=== PATIENT | male | born 1965 | race African-American/Black ===

== ENCOUNTER 2020-09-13 10:55 | Outpatient (REF) | payer OTHER, SELFPAY | END 2020-09-13 10:56 | disposition home or self-care (01) | LOC: HO.LAB 10:55 | PROVIDERS: Visit Provider Internal Medicine | DX: Z20.828 Contact with and (suspected) exposure to other viral communicable diseases (principal) | CPT/HCPCS: C9803; U0003 ==

== ENCOUNTER 2021-09-26 03:45 | Emergency (ER) | payer OTHER, SELFPAY ==
--- NOTE | 2021-09-26 | ECG_ITS ---
Test Reason : elevated heartrate Blood Pressure : / mmHG Vent. Rate : 080 BPM Atrial Rate : 080 BPM P-R Int : 150 ms QRS Dur : 076 ms QT Int : 366 ms P-R-T Axes : 078 028 047 degrees QTc Int : 422 ms Normal sinus rhythm Cannot rule out Inferior infarct , age undetermined Abnormal ECG No previous ECGs available Referred By: Mi Burkett Electronically Signed By:OZ MEJIA MD
--- NOTE | ~2021-09-26 | XR_ITS ---
EXAMINATION: XR CHEST CLINICAL INFORMATION: Cough COMPARISON: Chest x-ray 09/20/2019 TECHNIQUE: 2 views of the chest were obtained. FINDINGS: Cardiac silhouette is normal in size. The lungs are well aerated. There is no lobar consolidation. No pleural effusion or pneumothorax. Mild diffuse degenerative changes of the spine. XR/XR chest 2V IMPRESSION: No acute pulmonary pathology.
[2021-09-26 04:00] VITALS: BMI 31.4
[2021-09-26 05:45] LABS: COVID-19 Test Negative (Negative)
[2021-09-26 05:58] VITALS: BP 118/77; PULSE 64; RESP 16; TEMP 36.7; O2SAT 97
[2021-09-26 06:13] LABS: Alanine Aminotransferase 24 U/L (0-40); Albumin Level 4.5 g/dL (3.5-5.0); Alkaline Phosphatase 81 U/L (39-117); Anion Gap 11 (12-20); Aspartate Amino Transferase 22 U/L (5-37); Bilirubin Total 0.3 mg/dL (0.0-1.0); Blood Urea Nitrogen 15 mg/dL (9-16); Calcium 9.6 mg/dL (8.4-10.2); Carbon Dioxide 25 mmol/L (22-29); Chloride 108 mmol/L (96-108); Creatinine Clr Calc Pharmacy 83.6; Estimated Glomerular Filt Rate > 60; Glucose Random 103 mg/dL (60-115); Sodium 140 mmol/L (135-145); Total Protein 7.1 g/dL (6.5-8.0)
[2021-09-26 06:14] LABS: Troponin-I High Sensitivity 6.4 ng/L (<3.5-35.0)
[2021-09-26 06:29] LABS: Basophils Percent Auto 0.9 % (0-2); Eosinophils Absolute Auto 0.1 X10*3/uL (0.0-0.4); Eosinophils Percent Auto 1.1 % (0-4); Hematocrit 38.9 % (42.0-52.0); Hemoglobin 13.6 g/dl (14.0-18.0); Imm Gran Abs Auto 0.01 X10*3/uL (0.00-0.03); Imm Gran Pct Auto 0.2 % (0.0-0.4); Lymphocytes Absolute Auto 1.5 X10*3/uL (1.2-4.9); Lymphocytes Percent Auto 31.1 % (20-40); MANUAL DIFF FLAG NO; Mean Corpuscular Hemoglobin 27.2 pg (27.0-33.0); Mean Corpuscular Volume 77.8 fL (80.0-98.0); Mean Platelet Volume 9.4 fL (9.4-12.4); Monocytes Absolute Auto 0.4 X10*3/uL (0.1-1.2); Neutrophils Absolute Auto 2.7 x10*3/uL (2.0-8.3); Neutrophils Percent Auto 57.7 % (45-73); Platelet Count 266 X10*3/uL (160-400); Red Cell Distribution Width 12.8 % (11.0-16.0); White Blood Count 4.7 X10*3/uL (4.8-10.8)
--- NOTE | 2021-09-26 07:07 | ED_ITS ---
HPI - Arrhythmia/Palpitations General Chief Complaint: Arrhythmia/Palpitations Time Seen by Provider: 09/26/21 07:07 History of Present Illness HPI narrative: Downtime form was filled out. Related Data Allergies Allergy/AdvReac Type Severity Reaction Status Date / Time No Known Allergies Allergy Unverified 06/29/20 19:40 [No Known Allergies*] [facility] Social History Social History Alcohol intake: never Patient Tobacco Use Status: Never used Tobacco Use of substances other than those prescribed or required for medical reasons: No Advance Directives: No Advance Directives Information Provided: No Physical Exam 2 Vital Signs: Vital Signs: Last Vital Signs Temp 98.1 F 09/26/21 05:58 Pulse 64 09/26/21 05:58 Resp 16 09/26/21 05:58 BP 118/77 09/26/21 05:58 Pulse Ox 97 09/26/21 05:58 BMI result Body Mass Index 31.4 MDM - Arrhythmia/Palpitations Lab Data Result diagrams: 09/26/21 05:00 09/26/21 05:00 Labs: Lab Results 09/26/21 09/26/21 09/26/21 Range/Units 05:00 05:00 05:00 WBC 4.7 L (4.8-10.8) X10*3/uL RBC 5.00 (4.60-5.80) X10*6/uL Hgb 13.6 L (14.0-18.0) g/dl Hct 38.9 L (42.0-52.0) % MCV 77.8 L (80.0-98.0) fL MCH 27.2 (27.0-33.0) pg MCHC 35.0 (31.0-36.0) g/dl RDW 12.8 (11.0-16.0) % Plt Count 266 (160-400) X10*3/uL MPV 9.4 (9.4-12.4) fL Immature Gran % (Auto) 0.2 (0.0-0.4) % Neut % (Auto) 57.7 (45-73) % Lymph % (Auto) 31.1 (20-40) % [place] % (Auto) 9.0 (2-11) % Eos % (Auto) 1.1 (0-4) % Baso % (Auto) 0.9 (0-2) % Lymph # (Auto) 1.5 (1.2-4.9) X10*3/uL [place] # (Auto) 0.4 (0.1-1.2) X10*3/uL Eos # (Auto) 0.1 (0.0-0.4) X10*3/uL Baso # (Auto) 0.0 (0.0-0.2) X10*3/uL Abs Immat Gran (auto) 0.01 (0.00-0.03) X10*3/uL Absolute Neuts (auto) 2.7 (2.0-8.3) x10*3/uL Absolute Nucleated RBC 0.000 (0.0-0.012) X10*3/uL Nucleated RBC % (auto) 0.0 (0.0-0.2) /100WBC Sodium 140 (135-145) mmol/L Potassium 4.0 (3.3-5.1) mmol/L Chloride 108 (96-108) mmol/L Carbon Dioxide 25 (22-29) mmol/L Anion Gap 11 L (12-20) BUN 15 (9-16) mg/dL Creatinine 1.20 (0.5-1.4) mg/dL Estim Creat Clear Calc 83.6 Estimated GFR > 60 Random Glucose 103 (60-115) mg/dL Calcium 9.6 (8.4-10.2) mg/dL Total Bilirubin 0.3 (0.0-1.0) mg/dL AST 22 (5-37) U/L ALT 24 (0-40) U/L Alkaline Phosphatase 81 (39-117) U/L Troponin I High Sens 6.4 (<3.5-35.0) ng/L Total Protein 7.1 (6.5-8.0) g/dL Albumin 4.5 (3.5-5.0) g/dL COVID-19 ([facility]) (Negative) COVID-19 Clin Com 09/26/21 Range/Units Unknown WBC (4.8-10.8) X10*3/uL RBC (4.60-5.80) X10*6/uL Hgb (14.0-18.0) g/dl Hct (42.0-52.0) % MCV (80.0-98.0) fL MCH (27.0-33.0) pg MCHC (31.0-36.0) g/dl RDW (11.0-16.0) % Plt Count (160-400) X10*3/uL MPV (9.4-12.4) fL Immature Gran % (Auto) (0.0-0.4) % Neut % (Auto) (45-73) % Lymph % (Auto) (20-40) % [place] % (Auto) (2-11) % Eos % (Auto) (0-4) % Baso % (Auto) (0-2) % Lymph # (Auto) (1.2-4.9) X10*3/uL [place] # (Auto) (0.1-1.2) X10*3/uL Eos # (Auto) (0.0-0.4) X10*3/uL Baso # (Auto) (0.0-0.2) X10*3/uL Abs Immat Gran (auto) (0.00-0.03) X10*3/uL Absolute Neuts (auto) (2.0-8.3) x10*3/uL Absolute Nucleated RBC (0.0-0.012) X10*3/uL Nucleated RBC % (auto) (0.0-0.2) /100WBC Sodium (135-145) mmol/L Potassium (3.3-5.1) mmol/L Chloride (96-108) mmol/L Carbon Dioxide (22-29) mmol/L Anion Gap (12-20) BUN (9-16) mg/dL Creatinine (0.5-1.4) mg/dL Estim Creat Clear Calc Estimated GFR Random Glucose (60-115) mg/dL Calcium (8.4-10.2) mg/dL Total Bilirubin (0.0-1.0) mg/dL AST (5-37) U/L ALT (0-40) U/L Alkaline Phosphatase (39-117) U/L Troponin I High Sens (<3.5-35.0) ng/L Total Protein (6.5-8.0) g/dL Albumin (3.5-5.0) g/dL COVID-19 ([facility]) Negative (Negative) COVID-19 Clin Com See Note
[2021-09-26 08:06] VITALS: BP 146/92; PULSE 69; RESP 14; TEMP 37.2; O2SAT 98
--- NOTE | 2021-09-26 08:46 | PC.NURSE ---
nad, skin wpd, no complaints, sr on monitor
== END 2021-09-26 07:15 | disposition home or self-care (01) ==
PROVIDERS: Emergency Provider Student in an Organized Health Care Education/Training Program
DX: R00.2 Palpitations (principal); Z20.822 Contact with and (suspected) exposure to COVID-19
CPT/HCPCS: 36415; 71046; 80053; 84484; 85025; 87635; 93005; 99284; 99285

== ENCOUNTER 2022-10-17 09:08 | Emergency (ER) | payer OTHER, SELFPAY ==
--- NOTE | ~2022-10-17 | XR_ITS ---
EXAMINATION: XR CHEST CLINICAL INFORMATION: Chest pain COMPARISON: 09/26/2021 TECHNIQUE: 2 views of the chest were obtained. FINDINGS: No significant abnormality is noted involving the heart, lungs, mediastinum, bony thorax or soft tissues. XR/XR chest 2V IMPRESSION: Unremarkable examination.
[2022-10-17 09:11] VITALS: BP 185/90; PULSE 82; RESP 18; TEMP 37.1; O2SAT 97; BMI 26.9
--- NOTE | 2022-10-17 09:16 | ECG_ITS ---
Test Reason : chest pain Blood Pressure : / mmHG Vent. Rate : 073 BPM Atrial Rate : 073 BPM P-R Int : 140 ms QRS Dur : 080 ms QT Int : 354 ms P-R-T Axes : 077 020 051 degrees QTc Int : 389 ms Normal sinus rhythm Minimal voltage criteria for LVH, may be normal variant ( Sokolow-Ortega ) Borderline ECG When compared with ECG of 26-SEP-2021 04:20, No significant change was found Referred By: Generic ED Physician Electronically Signed By:CAT CONTRERAS
[2022-10-17 09:34] LABS: Basophils Percent Auto 0.8 % (0-2); Eosinophils Percent Auto 0.8 % (0-4); Hemoglobin 13.7 g/dl (14.0-18.0); Imm Gran Abs Auto 0.01 X10*3/uL (0.00-0.03); Imm Gran Pct Auto 0.3 % (0.0-0.4); Lymphocytes Absolute Auto 1.1 X10*3/uL (1.2-4.9); Lymphocytes Percent Auto 28.5 % (20-40); MANUAL DIFF FLAG NO; Mean Corpuscular HGB Conc 35.1 g/dl (31.0-36.0); Mean Corpuscular Hemoglobin 27.2 pg (27.0-33.0); Mean Corpuscular Volume 77.4 fL (80.0-98.0); Mean Platelet Volume 8.9 fL (9.4-12.4); Monocytes Absolute Auto 0.3 X10*3/uL (0.1-1.2); Monocytes Percent Auto 7.3 % (2-11); Neutrophils Absolute Auto 2.4 x10*3/uL (2.0-8.3); Neutrophils Percent Auto 62.3 % (45-73); Platelet Count 245 X10*3/uL (160-400); Red Blood Count 5.04 X10*6/uL (4.60-5.80); White Blood Count 3.9 X10*3/uL (4.8-10.8)
[2022-10-17 09:51] LABS: Anion Gap 11 (12-20); Blood Urea Nitrogen 10 mg/dL (9-16); Calcium 9.3 mg/dL (8.4-10.2); Carbon Dioxide 23 mmol/L (22-29); Chloride 110 mmol/L (96-108); Creatinine Clr Calc Pharmacy 75.4; Estimated Glomerular Filt Rate > 60; Glucose Random 112 mg/dL (60-115); Potassium 4.1 mmol/L (3.3-5.1); Sodium 140 mmol/L (135-145)
[2022-10-17 10:03] LABS: Troponin-I High Sensitivity 3.5 ng/L (<3.5-35.0)
--- NOTE | 2022-10-17 10:40 | ED_ITS ---
HPI - Chest Pain General Chief Complaint: Chest Pain Stated Complaint: CP Time Seen by Provider: 10/17/22 10:34 Source: patient Mode of arrival: ambulatory Limitations: no limitations History of Present Illness HPI narrative: 57 year old male with hypertension started on nifedepime which has has taken for the last few days. He states he felt his blood pressure elevated yesterday after taking the medication so he took half a dose today. Still having the same symptoms. Now has left sided chest pain with movement. He denies dyspnea fever cough. He has never had a heart attack no history of blood clots. MD complaint: chest pain and chest discomfort Related Data Allergies Allergy/AdvReac Type Severity Reaction Status Date / Time No Known Allergies Allergy Verified 10/17/22 09:16 [No Known Allergies*] Review of Systems Review of Systems: Review of systems: General: Patient denies any fever chills recent illness or falls Musculoskeletal: Denies back pain or body aches or other injuries HEENT: denies headache, runny nose, ear pain Respiratory: denies shortness of breath, cough Cardiovascular: left sided chest pain or palpitations : denies dysuria, frequency Abdomen: no nausea vomiting denies abdominal pain Extremities: no swelling, no pain Skin: no diaphoresis Yes all other systems are reviewed and are negative PMFSH Social History Social History Alcohol intake: unknown Patient Tobacco Use Status: Never used Tobacco Smoked in Last 30 Days: No Advance Directives: No Advance Directives Information Provided: Yes Physical Exam Vital Signs: Vital Signs: Last Vital Signs Temp 98.7 F 10/17/22 09:11 Pulse 82 10/17/22 09:11 Resp 18 10/17/22 09:11 BP 185/90 H 10/17/22 09:11 Pulse Ox 97 10/17/22 09:11 O2 Del Method 10/17/22 09:11 BMI result Body Mass Index 26.9 General: Well-appearing well-nourished in no signs of distress HEENT: Normocephalic atraumatic Neck: No signs of JVD, no masses no tenderness or lymphadenopathy Cardiovascular: Regular rate and rhythm Respiratory: Clear to auscultation bilaterally Abdomen: Soft nontender no masses Extremities: Normal pedal pulses no signs of edema Skin: Dry warm no rashes Back: No tenderness full ROM Medical Decision Making Medical Decision Making MDM Narrative: Well appearing male who states after he takes nifedipine which was newly presribed by his doctor his blood pressure elevated and he has pain. He denies fallls injuries or lifting to explain the pain. I feel this is medication related and could be musckuloskeletal as his troponin XR and labs are all unremarkable. XR and labs are all normall Patient looks well I will discharge home with PCP ladarius nicholson. Differential Diagnosis Differential Diagnoses: The differential diagnosis associated with the presentation includes ACS, PE, Medication reaction to nifedipine, rib fracture, constochondritis, muscle strain less likely infection no signs of PE not tachycardic no hypoxia, ACS workup will be done No history of trauma I will add on repeat troponin and XR to workup Admission/Observation Consideration of admission/observation: Escalation of care including admission/observation considered Lab Data MDM Lab Attestation statement: I reviewed the patient's lab results. Result Diagrams: 10/17/22 09:22 10/17/22 09:22 Labs: Lab Results 10/17/22 10/17/22 10/17/22 Range/Units 09:22 09:22 09:22 WBC 3.9 L (4.8-10.8) X10*3/uL RBC 5.04 (4.60-5.80) X10*6/uL Hgb 13.7 L (14.0-18.0) g/dl Hct 39.0 L (42.0-52.0) % MCV 77.4 L (80.0-98.0) fL MCH 27.2 (27.0-33.0) pg MCHC 35.1 (31.0-36.0) g/dl RDW 13.0 (11.0-16.0) % Plt Count 245 (160-400) X10*3/uL MPV 8.9 L (9.4-12.4) fL Immature Gran % (Auto) 0.3 (0.0-0.4) % Neut % (Auto) 62.3 (45-73) % Lymph % (Auto) 28.5 (20-40) % [place] % (Auto) 7.3 (2-11) % Eos % (Auto) 0.8 (0-4) % Baso % (Auto) 0.8 (0-2) % Lymph # (Auto) 1.1 L (1.2-4.9) X10*3/uL [place] # (Auto) 0.3 (0.1-1.2) X10*3/uL Eos # (Auto) 0.0 (0.0-0.4) X10*3/uL Baso # (Auto) 0.0 (0.0-0.2) X10*3/uL Abs Immat Gran (auto) 0.01 (0.00-0.03) X10*3/uL Absolute Neuts (auto) 2.4 (2.0-8.3) x10*3/uL Absolute Nucleated RBC 0.000 (0.0-0.012) X10*3/uL Nucleated RBC % (auto) 0.0 (0.0-0.2) /100WBC Sodium 140 (135-145) mmol/L Potassium 4.1 (3.3-5.1) mmol/L Chloride 110 H (96-108) mmol/L Carbon Dioxide 23 (22-29) mmol/L Anion Gap 11 L (12-20) BUN 10 (9-16) mg/dL Creatinine 1.15 (0.5-1.4) mg/dL Estim Creat Clear Calc 75.4 Estimated GFR > 60 Random Glucose 112 (60-115) mg/dL Calcium 9.3 (8.4-10.2) mg/dL Troponin I High Sens 3.5 (<3.5-35.0) ng/L 10/17/22 Range/Units 11:07 WBC (4.8-10.8) X10*3/uL RBC (4.60-5.80) X10*6/uL Hgb (14.0-18.0) g/dl Hct (42.0-52.0) % MCV (80.0-98.0) fL MCH (27.0-33.0) pg MCHC (31.0-36.0) g/dl RDW (11.0-16.0) % Plt Count (160-400) X10*3/uL MPV (9.4-12.4) fL Immature Gran % (Auto) (0.0-0.4) % Neut % (Auto) (45-73) % Lymph % (Auto) (20-40) % [place] % (Auto) (2-11) % Eos % (Auto) (0-4) % Baso % (Auto) (0-2) % Lymph # (Auto) (1.2-4.9) X10*3/uL [place] # (Auto) (0.1-1.2) X10*3/uL Eos # (Auto) (0.0-0.4) X10*3/uL Baso # (Auto) (0.0-0.2) X10*3/uL Abs Immat Gran (auto) (0.00-0.03) X10*3/uL Absolute Neuts (auto) (2.0-8.3) x10*3/uL Absolute Nucleated RBC (0.0-0.012) X10*3/uL Nucleated RBC % (auto) (0.0-0.2) /100WBC Sodium (135-145) mmol/L Potassium (3.3-5.1) mmol/L Chloride (96-108) mmol/L Carbon Dioxide (22-29) mmol/L Anion Gap (12-20) BUN (9-16) mg/dL Creatinine (0.5-1.4) mg/dL Estim Creat Clear Calc Estimated GFR Random Glucose (60-115) mg/dL Calcium (8.4-10.2) mg/dL Troponin I High Sens 3.5 (<3.5-35.0) ng/L Independent Interpretation I performed an independent interpretation of an: EKG and Plain X-Ray Interpretation: EKG Rate 73 nsr normal intervals no signs of ischemia similiar to previous XR is normal Radiology Impression Discussion of test interpretation with radiology: I have reviewed the radiologist's reading. Scores Heart Score History: -0- slightly suspicious ECG: -0- normal Age: -1- >45 - <65 Risk factory: -0- no risk factors known Troponin: -0- < or = normal limit Score: 1 Risk: 1.7% Additional Scores PERC Score: Score: negative Discharge Plan Discharge Clinical Impression: Chest pain, Adverse effect of nifedipine Patient Disposition: Home, Self-Care Instructions: Chest Pain (DC) Additional Instructions: XR labs are all normal I will send home with PCp ladarius dumont. Stand Alone Forms: Work/School Release
--- NOTE | 2022-10-17 10:41 | PC.NURSE ---
Patient presents to ED with reprot of chest pain since last night radiaiting to back worse with movement no inspiration palpation. LS clear no distress noted NSR on cardiac monito. Reports recnt dose change in BP med reports chest pain post admin. AOx 4 neuros intact no drift no facial droop no deviation of tongue. Denies ABD pain, IV access obtained .
[2022-10-17 11:36] LABS: Troponin-I High Sensitivity 3.5 ng/L (<3.5-35.0)
[2022-10-17] MEDS: 0.9 % Sodium Chloride 1,000 ML 999 ML IV (12:08)
[2022-10-17] MEDS: Ketorolac Tromethamine 15 MG/ML VIAL IVPUSH (12:08)
[2022-10-17] MEDS: Aspirin 81 MG TAB.CHEW 324 MG PO (12:08)
== END 2022-10-17 12:38 | disposition home or self-care (01) ==
PROVIDERS: Emergency Provider Student in an Organized Health Care Education/Training Program
DX: R07.89 Other chest pain (principal); Z79.899 Other long term (current) drug therapy
CPT/HCPCS: 36415; 71046; 80048; 84484; 85025; 93005; 96374; 99284; J1885

== ENCOUNTER 2023-05-02 08:52 | Outpatient (REF) | payer OTHER, SELFPAY ==
[2023-05-02 15:46] LABS: Alanine Aminotransferase 18 U/L (0-40); Albumin Level 4.1 g/dL (3.5-5.0); Alkaline Phosphatase 69 U/L (39-117); Anion Gap 10 (12-20); Aspartate Amino Transferase 23 U/L (5-37); Bilirubin Total 0.4 mg/dL (0.0-1.0); Blood Urea Nitrogen 12 mg/dL (9-16); Calcium 9.2 mg/dL (8.4-10.2); Carbon Dioxide 27 mmol/L (22-29); Chloride 106 mmol/L (96-108); Cholesterol 185 mg/dL; Estimated Glomerular Filt Rate > 60; Glucose Fasting 60 mg/dL (60-99); HDL Cholesterol 52 mg/dL; LDL Cholesterol Calculated 116 mg/dl; Potassium 4.4 mmol/L (3.3-5.1); Sodium 139 mmol/L (135-145); Total Protein 7.1 g/dL (6.5-8.0); Triglycerides 85 mg/dL
[2023-05-02 15:47] LABS: TSH reflex Free T4 1.97 uIU/mL (0.32-4.0)
== END 2023-05-02 08:53 | disposition home or self-care (01) ==
LOC: HO.CHCLDS 08:52
PROVIDERS: Visit Provider Internal Medicine
DX: I10 Essential (primary) hypertension (principal)
CPT/HCPCS: 36415; 80053; 80061; 84443

== ENCOUNTER 2024-06-10 12:57 | Outpatient (REF) | payer OTHER, SELFPAY ==
[2024-06-11 09:15] LABS: HBS Num1 0.31 mIU/mL (0-7.99); ~Hepatitis B Surface Antibody NONREACTIVE (Nonreactive)
[2024-06-11 09:22] LABS: Hepatitis A Antibody IgM 0.14 Index (0-0.79); ~Hepatitis A Antibody IgM Nonreactive (Nonreactive)
== END 2024-06-10 12:58 | disposition home or self-care (01) ==
LOC: HO.CHCLDS 12:57
PROVIDERS: Visit Provider Internal Medicine
DX: I10 Essential (primary) hypertension (principal); Z11.59 Encounter for screening for other viral diseases
CPT/HCPCS: 36415; 86706; 86709

== ENCOUNTER 2024-12-21 10:22 | Outpatient (REF) | payer OTHER, SELFPAY ==
--- OUTSIDE RECORDS SUMMARY | 2024-12-21 12:17 | XMS_ITS | Encounter Summary ---
Author Organization [employer] Address [address] [place] [address] [address], [place] [address] Care Team Providers Care Construction Trench Digger Name Role Phone Kaya Craig MD Primary Care Provider [phone] Encounter Details Date Type Department Care Team (Latest Contact Info) Description 09/29/2019 Abstract [facility] CONVERSIONS Dental, Provider, DDS Social History Tobacco Use Types Packs/Day Years Used Date Smoking Tobacco: Never Assessed Sex and Gender Information Value Date Recorded Sex Assigned at Male 08/12/2022 10:35 AM EDT Legal Sex Male 10:35 AM EDT Gender Identity Male 08/12/2022 10:35 AM EDT Sexual Orientation Straight 08/12/2022 10 :35 AM EDT documented as of this encounter Plan of Treatment Not on file documented as of this encounter Visit Diagnoses Not on filedocumented in this encounter Care Teams Construction Trench Digger Relationship Specialty Start Date End Date Kaya Craig MD [address] [facility] [place] [id number] PCP - General Internal Medicine 08/31/21 documented as of this encounter
--- OUTSIDE RECORDS SUMMARY | 2024-12-21 12:18 | XMS_ITS | Clinical Summary ---
Author Organization [employer] Address [address] [place] [address] [address] [place] [address] Care Team Providers Care Lead Network Engineer Name Role Phone Kaya Craig MD Primary Care Provider [phone] Allergies No known active allergies Medications chlorhexidine (Hibiclens) 4 % external liquidIndication s:Acute folliculitis Apply topically if needed each day for wound care. 118 mL 12/08/19 24 Active Aspirin Adult Low Strength 81 MG EC tabletIndication s:Primary hypertension TAKE ONE TABLET EVERY MORNING 30 tablet 11 09/15/20 24 Active amLODIPine (Norvasc) 5 MG tabletIndication s:Primary hypertension TAKE ONE TABLET EVERY MORNING 90 tablet 12/07/19 25 Active amLODIPine (Norvasc) 5 MG tabletIndication s:Primary hypertension TAKE ONE TABLET EVERY MORNING 90 tablet 08/25/20 24 025 Discontinued Active Problems Problem Noted Date Diagnosed Date Hypertensive disorder 10/17/2022 Inactive tuberculosis 09/20/2019 Pure hypercholesterolemia 01/01/2019 Encounters Date Type Department Care Team Description 12/21/2024 9:30 AM EDT Office Visit [facility] [address] [place] [address] Kaya Craig MD Primary hypertension (Primary Dx); Screen for STD (sexually transmitted disease); Encounter for immunization 12/21/2024 Travel 12/14/2024 Patient Outreach [facility] [address] [place] [address] Kaya Craig MD Pre-visit Planning ([facility] unable to reach [facility]) 12/06/2024 Refill [facility] [address] [place] [address] Kaya Craig MD Primary hypertension 10/08/2024 10:00 AM EST Nurse Only [facility] [address] [place] [address] Mary Mazariegos, RN Encounter for immunization 10/08/2024 Travel from Last 3 Months Immunizations Name Administration Dates Next Due Hep A, Adult 06/18/2024 Hep B, adult 10/08/2024,07/19/2024,06/18/2024 Pfizer Covid-19 Vaccine 12+ 02/23/2021, Pneumococcal Conjugate PCV 20 12/21/2024 Tdap 04/02/2022 Zoster, Recombinant 04/02/2022 Family History Medical History Relation Name Comments Dementia Father Pneumonia Father Bone cancer Mother Hypertension Mother No Known Problems Mother's Sister Relation Name Status Comments Father Mother Mother's Sister Social History Tobacco Use Types Packs/Day Years Used Date Smoking Tobacco: Never Passive Smoke Exposure: Never Smokeless Tobacco: Never Tobacco Cessation:Counseling Given: Not Answered Alcohol Use Standard Drinks/Week Comments Never 0 (1 standard drink = 0.6 oz pur e alcohol) Depression Answer Date Recorded Patient Health Questionnaire-9 Score 0 03/30/2024 Patient Health Questionnaire-9 Score 0 03/30/2024 Last PHQ-9: Questionnaire Data Not on file 0 03/30/2024 Housing Stability Answer Date Recorded What is your housing situation today? I have julia kinsey 12/21/[address] you li ve. Do you have problems with any of the following? None of the above 12/21/2024 Food Insecurity Answer Date Recorded Within the past 12 months, y ou worried that your food would run out before you got money to buy more: Never True 12/21/2024 Within the past 12 months,th e food you bought just didn't last and you didn't have enough money to get more: Never True 08/2025 Transportation Answer Date Recorded In the past 12 months, has l ack of transportation kept you from medical appts, meetings, work or from getting things needed for daily living? No 12/21/2024 Utilities Answer Date Recorded In the past 12 months, has t he electric, gas, oil or water company threatened to shut off services in your home? No 12/21/2024 Depression Answer Date Recorded Patient Health Questionnaire-2 Score 0 03/30/2024 Internet Access Answer Date Recorded Internet Access Q1 Yes 12/21/2024 Internet Access Q2 Not on file 12/21/2024 Sex and Gender Information Value Date Recorded Sex Assigned at Male 08/12/2022 10:35 AM EDT Legal Sex Male 10:35 AM EDT Gender Identity Male 08/12/2022 10:35 AM EDT Sexual Orientation Straight 08/12/2022 10 :35 AM EDT Last Filed Vital Signs Vital Sign Reading Time Taken Comments Blood Pressure 177/101 12/21/2024 9:24 AM EDT Pulse 81 12/21/2024 9:24 AM EDT Temperature 36.9 ??C (98.5 ??F) 12/21/2024 9:24 AM ED T Respiratory Rate 20 12/21/2024 9:24 AM EDT Oxygen Saturation 98% 12/21/2024 9:24 AM EDT Inhaled Oxygen Concentration - - Weight 92.1 kg (203 lb) 12/21/2024 9:24 AM EDT Height 177.8 cm (5' 10 ) 12/21/2024 9:24 AM EDT Body Mass Index 29.13 12/21/2024 9:24 AM EDT Plan of Treatment Health Maintenance Due Date Last Done Comments CT Colonography 1965 Colonoscopy 1965 FIT 1965 FOBT 1965 HIV Screening 1965 Sigmoidoscopy 1965 Zoster Vaccines (2 of 2) 05/28/2022 04/02/2022 COVID-19 Vaccine (3 - 2023-2 5 season) 2024 02/23/2021, 02/03/2021 Influenza Vaccine (#1) 2024 Depression Screening 03/30/2025 03/30/2024, 03/30/2024 Alcohol/Substance Use Screening 12/21/2025 12/21/2024 SDOH Screening 12/21/2025 12/21/2024 Tobacco Screening 12/21/2025 12/21/2024 Colorectal Cancer Screening 04/07/2027 FIT DNA/Cologuard 04/07/2027 04/07/2024 Lipid Panel 05/02/2028 05/02/2023, 09/04/2021 DTaP/Tdap/Td Vaccines (2 - T d or Tdap) 04/02/2032 04/02/2022 RSV Patients and Patients Aged 60 years or older (1 - 1-dose 75+ series) 2040 Hepatitis C Screening Completed 11/12/2021 Hepatitis A Vaccines Aged Out 06/18/2024 No long er eligible based on patient's age to complete this topic Hepatitis B Vaccines Completed 10/08/2024, 07/19/2024, 06/18/2024 Pneumococcal Vaccine: 50+ Years Completed 12/21/2024 HIB Vaccines Aged Out No longer eligi ble based on patient's age to complete this topic HPV Vaccines Aged Out No longer eligi ble based on patient's age to complete this topic IPV Vaccines Aged Out No longer eligi ble based on patient's age to complete this topic Meningococcal Vaccine Aged Out No shadi lennox eligible based on patient's age to complete this topic RSV under 20 months Aged Out No longe r eligible based on patient's age to complete this topic Rotavirus Vaccines Aged Out No longer eligible based on patient's age to complete this topic Procedures Procedure Name Priority Date/Time Associated Diagnosis Comments LAB COLOGUARD?? COLON CANCER SCREEN Routine 04/07/2024 7:40 AM EDT Screening for colon cancer LIPID PANEL, STANDARD Routine 05/02/2023 8:56 AM EDT Primary hypertension ZZZ HISTORICAL HEPATITIS C AB W/REFL TO HCV RNA, QN, PCR Routine 11/12/2021 8:35 AM EST from Last 3 Months or Most Recently Relevant to Health Maintenance Results * Cologuard?? colon cancer screening (04/07/2024 7:40 AM EDT) Cologuard Result Negative Negative 04/13/20 24 5:11 PM EDT [facility] (CLIA #:[id number]) Comment: NEGATIVE TEST RESULT. A negative Cologuard result indicates a low likelihood that a colorectal cancer (CRC) or advanced adenoma (adenomatous polyps with more advanced pre-malignant features) ??is present. The chance that a person with a negative Cologuard test has a colorectal cancer is less than 1 in 1500 (negative predictive value >99.9%) or has an ??advanced adenoma is less than ??5.3% (negative predictive value 94.7%). These data are based on a prospective cross-sectional study of 10,000 individuals at average risk for colorectal cancer who were screened with both Cologuard and colonoscopy. (Antonio Garcia et al, N Engl J Med 2014;370(14):1286- 1297) The normal value (reference range) for this assay is negative. COLOGUARD RE-SCREENING RECOMMENDATION: Periodic colorectal cancer screening is an important part of preventive healthcare for asymptomatic individuals at average risk for colorectal cancer. ??Following a negative Cologuard result, the [place] [employer] and U.S. Multi-Society Task Force screening guidelines recommend a Cologuard re-screening interval of 3 years. References: [place] [employer] Guideline for Colorectal Cancer Screening: https://www.cancer.org/cancer/eltpd-siwlsr-fkgqpm/repuwzaqs-yhqvuynwx-peybccj/ac s-rec ommendations.html.; Meño DK, Orlando DEL TORO, Dunia MartinK, Colorectal Cancer Screening: Recommendations for Physicians and Patients from the U.S. Multi-Society Task Force on Colorectal Cancer Screening , Am J Gastroenterology 2017; 112:2239-2131. TEST DESCRIPTION: Composite algorithmic analysis of stool DNA-biomarkers with hemoglobin immunoassay. ?? Quantitative values of individual biomarkers are not reportable and are not associated with individual biomarker result reference ranges. Cologuard is intended for colorectal cancer screening of adults of either sex, 45 years or older, who are at average-risk for colorectal cancer (CRC). Cologuard has been approved for use by the U.S. FDA. The performance of Cologuard was established in a cross sectional study of average-risk adults aged 50-84. Cologuard performance in patients ages 45 to 49 years was estimated by sub-group analysis of near-age groups. Colonoscopies performed for a positive result may find as the most clinically significant lesion: colorectal cancer [4.0%], advanced adenoma (including sessile serrated polyps greater than or equal to 1cm diameter) [20%] or non- advanced adenoma [31%]; or no colorectal neoplasia [45%]. These estimates are derived from a prospective cross-sectional screening study of 10,000 individuals at average risk for colorectal cancer who were screened with both Cologuard and colonoscopy. (Antonio Brown al, N Engl J Med 2014;370(14):0611-7339.) Cologuard may produce a false negative or false positive result (no colorectal cancer or precancerous polyp present at colonoscopy follow up). A negative Cologuard test result does not guarantee the absence of CRC or advanced adenoma (pre-cancer). The current Cologuard screening interval is every 3 years. ([place] [employer] and U.S. Multi-Society Task Force). Cologuard performance data in a 10,000 patient pivotal study using colonoscopy as the reference method can be accessed at the following location: www.[employer].M2TECH/results. Additional description of the Cologuard test process, warnings and precautions can be found at www.CodeBabyogSprucelingrd.com. Stool specimen (specimen) 04/07/2024 7:40 AM EDT 04/08/2024 10:51 AM EDT us Kaya Craig MD LAB MOLECULAR DIAGNOSTICS O RDERABLES Final Result [facility] [employer] (CLIA #:[id number]) [address] [place] [address], * Lipid Panel, Standard (05/02/2023 8:56 AM EDT) Triglycerides 85 mg/dL [facility] Comment:Desirable Triglyceri de: less than 150 mg/dLBorderline High Triglyceride 150-199 mg/dLHigh Triglyceride: 200-499 mg/dLVery High Triglyceride: greater than or equal to 5OO mg/dL Cholesterol 185 mg/dL [facility] Comment:Desirable Cholestero l: less than 200 mg/dLBorderline High Cholesterol: 200-239 mg/dLHigh Cholesterol: greater than 239 mg/dL LDL Cholesterol Calculated 116 mg/dl [facility] Comment:Desirable LDL: less than 100 mg/dLNear Optimal/Above Optimal LDL: 110- 129 mg/dLBorderline High LDL: 130-159 mg/dLHigh LDL: 160-189 mg/dLVery High LDL: greater than or equal to 190 mg/dL HDL Cholesterol 52 mg/dL [facility] Comment:Desirable HDL: great er than 40 mg/dL Note: This HDL assay may give artificially low results in patients with liver disease. Blood Venous blood specimen / Unknown 05/02/2023 8:56 AM EDT 05/02/2023 2:24 PM EDT us Kaya Craig MD LAB BLOOD ORDERABLES Final Result Performing Organization Address [facility]/ZIP Co de Phone Number [facility] [address] [place] [address] [phone] * HEPATITIS C AB W/REFL TO HCV RNA, QN, PCR (11/12/2021 8:35 AM EST) HEPATITIS C ANTIBODY NON-REACT [facility] NON-REACT [facility] INDEX 0.03 <1.00 [facility] Comment: ?? HCV antibody was non-reactive. There is no laboratory ?? evidence of HCV infection. ?? In most cases, no further action is required. However, if recent HCV exposure is suspected, a test for HCV RNA (test code 05438) is suggested. ?? For additional information please refer to http://education.[employer].M2TECH/faq/EMK00v0 (This link is being provided for informational/ educational purposes only.) ?? 11/12/2021 8:35 AM EST us Kaya Craig MD HISTORICAL/NON ORDERABLE LA BS Final Result Performing Organization Address City/[facility]/ZIP Co de Phone Number [facility] [address] [place] [address], from Last 3 Months or Most Recently Relevant to Health Maintenance Insurance # [address] [place] [address] [facility] [address] [place] [address] [address] [place] [address] [id number] [place] [id number] Care Teams Lead Network Engineer Relationship Specialty Start Date End Date Kaya Craig MD [address] [place] [address] [place] [address] PCP - General Internal Medicine 08/31/21
--- OUTSIDE RECORDS SUMMARY | 2024-12-21 12:18 | XMS_ITS | Encounter Summary ---
Author Organization [employer] Address [address] [facility] [address], [place] [address] Care Team Providers Care Weigh Box Tender Name Role Phone Kaya Craig MD Primary Care Provider [phone] Reason for Visit * Reason Comments Pre-visit Planning [facility] unable to reach LVM Encounter Details Date Type Department Care Team ([facility] Contact Info) Description 12/14/2024 Patient Outreach [facility] [address] [place] [address] Kaya Craig MD [address] [place] [address] Pre-visit Planning ([facility] unable to reach LVM) Social History Tobacco Use Types Packs/Day Years Used Date Smoking Tobacco: Never Passive Smoke Exposure: Never Smokeless Tobacco: Never Alcohol Use Standard Drinks/Week Comments Never 0 (1 standard drink = 0.6 oz pur e alcohol) Depression Answer Date Recorded Patient Health Questionnaire-9 Score 0 03/30/2024 Patient Health Questionnaire-9 Score 0 03/30/2024 Last PHQ-9: Questionnaire Data Not on file 0 03/30/2024 Housing Stability Answer Date Recorded What is your housing situation today? I have julia kinsey 08/07/[address] you li ve. Do you have problems with any of the following? None of the above 08/07/2023 Food Insecurity Answer Date Recorded Within the past 12 months, y ou worried that your food would run out before you got money to buy more: Never True 08/07/2023 Within the past 12 months,th e food you bought just didn't last and you didn't have enough money to get more: Never True Transportation Answer Date Recorded In the past 12 months, has l ack of transportation kept you from medical appts, meetings, work or from getting things needed for daily living? No 08/07/2023 Utilities Answer Date Recorded In the past 12 months, has t he electric, gas, oil or water company threatened to shut off services in your home? No 08/07/2023 Depression Answer Date Recorded Patient Health Questionnaire-2 Score 0 03/30/2024 Sex and Gender Information Value Date Recorded Sex Assigned at Male 08/12/2022 10:35 AM EDT Legal Sex Male 10:35 AM EDT Gender Identity Male 08/12/2022 10:35 AM EDT Sexual Orientation Straight 08/12/2022 10 :35 AM EDT documented as of this encounter Progress Notes * Fatou Rodriguez - 12/14/2024 3:20 PM EST [facility] placed outbound call to patient to complete pre-visit planning. No answer at this time. Patient name and were not confirmed. CC left voicemail requesting return call. Direct contactinformation provided. documented in this encounter Plan of Treatment Not on file documented as of this encounter Visit Diagnoses Not on filedocumented in this encounter Additional Health Concerns Assessment Noted Time PHQ-9 Depression Total Score: 0 03/30/20 24 9:56 AM EDT documented as of this encounter Care Teams Weigh Box Tender Relationship Specialty Start Date End Date Kaya Craig MD [address] [place] [id number] PCP - General Internal Medicine 08/31/21 documented as of this encounter
--- OUTSIDE RECORDS SUMMARY | 2024-12-21 12:18 | XMS_ITS | Encounter Summary ---
Author Organization [employer] Address [address] [facility] 7 [place] [address] Care Team Providers Care Fitter Tacker Name Role Phone Kaya Craig MD Primary Care Provider [phone] Reason for Visit * Reason Comments Med Refill Encounter Details Date Type Department Care Team ([facility] Contact Info) Description 12/06/2024 Refill [facility] [address] [place] [address] Kaya Craig MD [address] [place] [address] Primary hypertension Social History Tobacco Use Types Packs/Day Years [...] documented as of this encounter Visit Diagnoses Diagnosis Primary hypertension Unspecified essential hypertension documented in this encounter Additional Health Concerns Assessment Noted Time PHQ-9 Depression Total Score: 0 03/30/20 24 9:56 AM EDT documented as of this encounter Care Teams Fitter Tacker Relationship Specialty Start Date End Date Kaya Craig MD [address] [place] [id number] PCP - General Internal Medicine 08/31/21 documented as of this encounter
--- OUTSIDE RECORDS SUMMARY | 2024-12-21 12:18 | XMS_ITS | Encounter Summary ---
Author Organization [employer] Address [address] [place] [address] [address] [address] Care Team Providers Care Test Pilot Name Role Phone Kaya Craig MD Primary Care Provider [phone] Encounter Details Date Type Department Care Team (Latest Contact Info) Description 02/04/2019 Abstract [facility] CONVERSIONS Dental, Provider, DDS Social [...] on filedocumented in this encounter Care Teams Test Pilot Relationship Specialty Start Date End Date Kaya Craig MD [address] [facility] [place] [address] PCP - General Internal Medicine 08/31/21 documented as of this encounter
--- OUTSIDE RECORDS SUMMARY | 2024-12-21 12:18 | XMS_ITS | Encounter Summary ---
Author Organization [employer] Address [address] [facility] [address] [place] [address] Care Team Providers Care Process Analyst Name Role Phone Kaya Craig MD Primary Care Provider [phone] Reason for Visit * Reason Comments Annual Exam Encounter Details Date Type Department Care Team ([facility] Contact Info) Description 12/21/2024 9:30 AM EDT Office Visit [facility] [address] [place] [address] Kaya Craig MD [address] [place] [address] Primary hypertension (Primary Dx); Screen for STD (sexually transmitted disease); Encounter for immunization Social History Tobacco Use Types Packs/Day Years [...] AM EDT documented as of this encounter Last Filed Vital Signs Vital Sign Reading [...] Mass Index 29.13 12/21/2024 9:24 AM EDT documented in this encounter Progress Notes * Kaya Craig MD - 12/21/2024 9:30 AM EDT Subjective Patient ID: Sam Xavier is a 59 y.o. male who presents for Annual Exam. HPI Pt feels well Pt denies any acute event since the last visit. Patient Active Problem List Diagnosis Hypertensive disorder Inactive tuberculosis Pure hypercholesterolemia Current Outpatient Medications on File Prior to Visit Medication Sig Dispense Refill amLODIPine (Norvasc) 5 MG tablet TAKE ONE TABLET EVERY MORNING 90 tablet 0 Aspirin Adult Low Strength 81 MG EC tablet TAKE ONE TABLET EVERY MORNING 30 tablet 11 chlorhexidine (Hibiclens) 4 % external liquid Apply topically if needed each day for wound care. 118 mL 0 No current facility-administered medications on file prior to visit. No Known Allergies Review of Systems Constitutional: Negative for activity change, appetite change, chills and diaphoresis. HENT: Negative for dental problem, drooling and ear discharge. Eyes: Negative for pain and itching. Respiratory: Negative for cough, choking and chest tightness. Cardiovascular: Negative for palpitations and leg swelling. Gastrointestinal: Negative for abdominal pain, anal bleeding and blood in stool. Endocrine: Negative for cold intolerance and heat intolerance. Genitourinary: Negative for flank pain, frequency and genital sores. Musculoskeletal: Negative for back pain. Neurological: Negative for light-headedness, numbness and headaches. Psychiatric/Behavioral: Negative for agitation, confusion and decreased concentration. Objective Physical Exam Constitutional: General: He is not in acute distress. Appearance: Normal appearance. He is obese. He is not ill-appearing, toxic- appearing or diaphoretic. HENT: Head: Normocephalic. Right Ear: Tympanic membrane normal. Left Ear: Tympanic membrane normal. Nose: Nose normal. Eyes: General: No scleral icterus. Right eye: No discharge. Left eye: No discharge. Pupils: Pupils are equal, round, and reactive to light. Cardiovascular: Rate and Rhythm: Normal rate and regular rhythm. Heart sounds: No murmur heard. No friction rub. No gallop. Pulmonary: Effort: Pulmonary effort is normal. No respiratory distress. Breath sounds: Normal breath sounds. No stridor. No wheezing, rhonchi or rales. Chest: Chest wall: No tenderness. Abdominal: General: Abdomen is flat. There is no distension. Palpations: Abdomen is soft. There is no mass. Tenderness: There is no abdominal tenderness. There is no right CVA tenderness, guarding or rebound. Hernia: No hernia is present. Genitourinary: Penis: Normal. Testes: Normal. Musculoskeletal: General: Normal range of motion. Cervical back: Normal range of motion. Skin: General: Skin is warm. Neurological: General: No focal deficit present. Mental Status: He is alert. Psychiatric: Mood and Affect: Mood normal. Behavior: Behavior normal. Assessment/Plan Diagnoses and all orders for this visit: Primary hypertension Comments: Pt is not interested in making any change in his management DASH diet recommended. Orders: - CBC auto differential; Future - Comprehensive Metabolic Panel; Future - Lipid Panel, Standard; Future - Hepatitis C Antibody with Reflex to HCV, RNA, Quantitative, Real-Time PCR; Future - HIV-1/2 Antigen and Antibodies, Fourth Generation, with Reflexes; Future - TSH W/Reflex to FT4; Future Screen for STD (sexually transmitted disease) Comments: Patient reports that his has a vaginal discharge and would like to get checked. Only has 1 sexual partner. Orders: - Chlamydia/N. Gonorrhoeae RNA, TMA, Urogenitial - HIV-1/2 Antigen and Antibodies, Fourth Generation, with Reflexes; Future - Hepatitis C Antibody with Reflex to HCV, RNA, Quantitative, Real-Time PCR; Future - RPR (Monitor) with Reflex to Titer; Future - Urinalysis w/reflex microscopic; Future - Trichomonas vaginalis RNA, Qualitative, TMA, Males; Future documented in this encounter Miscellaneous Notes * Addendum Note - Jen Gonsales MA - 12/21/2024 9:30 AM EDTAddended by: JEN GONSALES on: 12/21/2024 10:16 AM Modules accepted: Orders documented in this encounter Plan of Treatment Scheduled Orders Name Type Priority Associated Diagnoses Orde r Schedule Chlamydia/N. Gonorrhoeae RNA, TMA, Urogenitial Microbiology Routine Screen for STD (sexually transmitted disease) Ordered: 12/21/2024 HIV-1/2 Antigen and Antibodies, Fourth Generation, with Reflexes Lab Routine Screen for STD (sexually transmitted disease) Expected: 12/21/2024 (Approximate), Expires: 12/21/2025 Hepatitis C Antibody with Reflex to HCV, RNA, Quantitative, Real-Time PCR Lab Routine Screen for STD (sexually transmitted disease) Expected: 12/21/2024, Expires: 12/21/2025 RPR (Monitor) with Reflex to??Titer Lab Routine Screen for STD (sexually transmitted disease) Expected: 12/21/2024, Expires: 12/21/2025 Urinalysis w/reflex microscopic Lab Routine Screen for STD (sexually transmitted disease) Expected: 12/21/2024, Expires: 12/21/2025 Trichomonas vaginalis RNA, Qualitative, TMA, Males Lab Routine Screen for STD (sexually transmitted disease) Expected: 12/21/2024, Expires: 12/21/2025 CBC auto differential Lab Routine Primary hypertension Expected: 12/21/2024 (Approximate), Expires: 12/21/2025 Comprehensive Metabolic Panel Lab Routine Primary hypertension Expected: 12/21/2024 (Approximate), Expires: 12/21/2025 Lipid Panel, Standard Lab Routine Primary hypertension Expected: 12/21/2024 (Approximate), Expires: 12/21/2025 Hepatitis C Antibody with Reflex to HCV, RNA, Quantitative, Real-Time PCR Lab Routine Primary hypertension Expected: 12/21/2024, Expires: 12/21/2025 HIV-1/2 Antigen and Antibodies, Fourth Generation, with Reflexes Lab Routine Primary hypertension Expected: 12/21/2024 (Approximate), Expires: 12/21/2025 TSH W/Reflex to FT4 Lab Routine Primary hypertension Expected: 12/21/2024 (Approximate), Expires: 12/21/2025 documented as of this encounter Visit Diagnoses Diagnosis Primary hypertension- Primary Unspecified essential hypertension Screen for STD (sexually transmitted disease) Screening examination for venereal disease Encounter for immunization documented in this encounter Additional Health Concerns Assessment Noted Time PHQ-9 Depression Total Score: 0 03/30/20 24 9:56 AM EDT documented as of this encounter Care Teams Process Analyst Relationship Specialty Start Date End Date Kaya Craig MD [address] [place] [id number] PCP - General Internal Medicine 08/31/21 documented as of this encounter
--- OUTSIDE RECORDS SUMMARY | 2024-12-21 12:18 | XMS_ITS | Encounter Summary ---
Author Organization [employer] Address [address] [facility] [address] [place] [address] Care Team Providers Care Banana Room Cutter Name Role Phone Kaya Craig MD Primary Care Provider [phone] Encounter Details Date Type Department Care Team (Latest Contact Info) Description 12/21/2024 Travel Social History Tobacco Use Types Packs/Day Years [...] documented as of this encounter Care Teams Banana Room Cutter Relationship Specialty Start Date End Date Kaya Craig MD [address] [place] [id number] PCP - General Internal Medicine 08/31/21 documented as of this encounter
[2024-12-21 14:12] LABS: MANUAL DIFF FLAG NO
[2024-12-21 14:16] LABS: Eosinophils Absolute Auto 0.1 X10*3/uL (0.0-0.4); Eosinophils Percent Auto 1.2 % (0-4); Hematocrit 38.9 % (42.0-52.0); Hemoglobin 13.8 g/dl (14.0-18.0); Imm Gran Abs Auto 0.01 X10*3/uL (0.00-0.03); Imm Gran Pct Auto 0.2 % (0.0-0.4); Lymphocytes Absolute Auto 1.6 X10*3/uL (1.2-4.9); Lymphocytes Percent Auto 38.2 % (20-40); Mean Corpuscular HGB Conc 35.5 g/dl (31.0-36.0); Mean Corpuscular Hemoglobin 27.7 pg (27.0-33.0); Monocytes Absolute Auto 0.5 X10*3/uL (0.1-1.2); Monocytes Percent Auto 11.3 % (2-11); Neutrophils Percent Auto 48.1 % (45-73); Platelet Count 263 X10*3/uL (160-400); Red Blood Count 4.99 X10*6/uL (4.60-5.80); Red Cell Distribution Width 13.2 % (11.0-16.0); White Blood Count 4.1 X10*3/uL (4.8-10.8)
[2024-12-21 14:18] LABS: Appearance Urine Clear; Color Urine Yellow; Glucose Urine UA Negative (Negative); Leukocyte Esterase Urine Negative (Negative); Nitrite Urine Negative (Negative); Specific Gravity - Urine <= 1.005 (1.005-1.025); Urine Blood Negative (Negative); Urine Ketones Negative (Negative); Urine Protein Negative (Neg-Trace)
[2024-12-21 14:48] LABS: Alanine Aminotransferase 26 U/L (0-40); Albumin Level 4.2 g/dL (3.5-5.0); Alkaline Phosphatase 73 U/L (39-117); Anion Gap 11 (12-20); Aspartate Amino Transferase 30 U/L (5-37); Bilirubin Total 0.4 mg/dL (0.0-1.0); Blood Urea Nitrogen 13 mg/dL (9-16); Carbon Dioxide 23 mmol/L (22-29); Chloride 109 mmol/L (96-108); Cholesterol 178 mg/dL (<200); Estimated Glomerular Filt Rate > 60; Glucose Random 95 mg/dL (60-115); HDL Cholesterol 48 mg/dL (>40); LDL Cholesterol Calculated 114 mg/dL (<100); Potassium 3.9 mmol/L (3.3-5.1); Sodium 139 mmol/L (135-145); Total Protein 7.8 g/dL (6.5-8.0); Triglycerides 84 mg/dL (<150)
[2024-12-21 15:05] LABS: TSH reflex Free T4 3.01 uIU/mL (0.32-4.0)
[2024-12-21 16:45] LABS: CT PCR NOT DETECTED (Not Detect.); NG PCR NOT DETECTED (Not Detect.)
[2024-12-22 04:00] LABS: HIV AB/AG Nonreactive (Nonreactive); HIV Num 1 0.08 S/CO (0.00-0.99); ~HepC Num1 0.16 S/CO (0.00-0.79); ~Hepatitis C Antibody Nonreactive (Nonreactive)
[2024-12-22 11:47] LABS: RPR Rapid Plasma Reagin NON-REACTIVE (NON-REACTIVE)
== END 2024-12-21 10:23 | disposition home or self-care (01) ==
LOC: HO.CHCLDS 10:22
PROVIDERS: Visit Provider Internal Medicine
DX: Z11.3 Encounter for screening for infections with a predominantly sexual mode of transmission (principal); I10 Essential (primary) hypertension
CPT/HCPCS: 36415; 80053; 80061; 81003; 84443; 85025; 86592; 86803; 87389; 87491; 87591

== ENCOUNTER 2025-04-27 15:33 | Outpatient (REF) | payer OTHER, SELFPAY ==
--- NOTE | ~2025-04-27 | XR_ITS ---
EXAMINATION: XR KNEE, RIGHT CLINICAL INFORMATION: right knee pain COMPARISON: None available. TECHNIQUE: Three views of the right knee. FINDINGS: There is joint effusion. Superior patellar enthesophyte is present. There is mild narrowing of the medial joint space and small marginal osteophyte along the medial tibial plateau. Lateral tibial spine osteophyte is present. Small marginal osteophytes are present along the trochlea and lateral patella. XR/XR knee RT 3V IMPRESSION: Mild osteoarthritis and joint effusion. Electronically signed by: Edgar Talley MD 04/27/2025 03:57 PM EDT
--- OUTSIDE RECORDS SUMMARY | 2025-04-27 15:43 | XMS_ITS | Encounter Summary ---
Author Organization [employer] Address [address] [place] [id number] Care Team Providers Care Rn Hemodialysis Charge Name Role Phone Kaya Craig MD Primary Care Provider [phone] Encounter Details Date Type Department Care Team (Latest Contact Info) Description 09/29/2019 Abstract [facility] CONVERSIONS Dental, Provider, DDS Social History Tobacco Use Types Packs/Day Years Used Date Smoking Tobacco: Never Assessed Sex and Gender Information Value Date Recorded Sex Assigned at Male 08/12/2022 10:35 AM EDT Legal Sex Male 10:35 AM EDT Gender Identity Male 08/12/2022 10:35 AM EDT Sexual Orientation Straight 08/12/2022 10 :35 AM EDT documented as of this encounter Plan of Treatment Upcoming Encounters Date Type Department Care Team ([facility] Contact Info) Description 06/20/2025 10:45 AM EDT Office Visit [facility] [address] [place] [address] Kaya Craig MD [address] [place] [address] documented as of this encounter Visit Diagnoses Not on filedocumented in this encounter Care Teams Rn Hemodialysis Charge Relationship Specialty Start Date End Date Kaya Craig MD [address] [place] [address] PCP - General Internal Medicine 08/31/21 documented as of this encounter
== END 2025-04-27 15:34 | disposition home or self-care (01) ==
LOC: HO.XRAY 15:33
PROVIDERS: PCP Internal Medicine; Visit Provider Internal Medicine
DX: M25.561 Pain in right knee (principal)
CPT/HCPCS: 73562

== ENCOUNTER → 2025-04-27 15:38 | Outpatient (BNV) | payer OTHER, SELFPAY | PROVIDERS: PCP Internal Medicine; Visit Provider Radiology Diagnostic Radiology | DX: M25.561 Pain in right knee (principal) | CPT/HCPCS: 73562 ==